=== PATIENT | male | born 1965 | race Caucasian/White ===

== ENCOUNTER 2020-03-16 10:36 | Outpatient (CLI) | payer BC, SELFPAY ==
--- NOTE | 2020-03-16 10:50 | USCV_ITS ---
SARAH VILLARREAL Age: 54 Gender: M : 1965 Exam Date: 03/16/2020 11:09 Ordering Phys: Mariela Matos Technologist: Wayne Vieira Exam Location: [facility] – [place] Indication: RT LEG PAIN AND EDEMA HISTORY: Lower extremity swelling. PROCEDURES: Venous duplex imaging was performed in only the right lower extremity. The following venous structures were evaluated: common femoral vein, profunda vein, proximal portion of the greater saphenous vein, superficial femoral vein, and the popliteal vein. In addition, the posterior tibial and peroneal trunk were evaluated. FINDINGS: Normal 2-D Doppler and augmentation and compressibility throughout the lower extremity venous structures. Additional imaging through the proximal calf veins also reveals no thrombus. Limited evaluation of the greater saphenous vein is patent with no thrombus.. CONCLUSIONS No evidence of right lower extremity DVT. Michael Mead MD (Electronically Signed) Final Date: 16 March 2020 17:16 S
== END 2020-03-16 10:37 | disposition home or self-care (01) ==
LOC: RAD 10:43
PROVIDERS: Visit Provider Registered Nurse
DX: L03.115 Cellulitis of right lower limb (principal); M79.604 Pain in right leg
CPT/HCPCS: 93971

== ENCOUNTER 2020-04-06 09:39 | Outpatient (CLI) | payer BC, SELFPAY ==
[2020-04-06 14:48] LABS: Blood Urea Nitrogen 14 mg/dL (6-20); Glomerular Filtration Rate 118.4 mL/min (90-130)
== END 2020-04-06 09:40 | disposition home or self-care (01) ==
LOC: WOUND 09:41
PROVIDERS: Visit Provider Surgery
DX: I87.2 Venous insufficiency (chronic) (peripheral) (principal); L97.812 Non-pressure chronic ulcer of other part of right lower leg with fat layer exposed
CPT/HCPCS: 11042; 36415; 82565; 84520; G0463

== ENCOUNTER 2020-04-13 13:06 | Outpatient (CLI) | payer BC, SELFPAY | END 2020-04-13 13:07 | disposition home or self-care (01) | LOC: WOUND 13:07 | PROVIDERS: PCP Registered Nurse; Visit Provider Surgery | DX: I87.2 Venous insufficiency (chronic) (peripheral) (principal); L97.812 Non-pressure chronic ulcer of other part of right lower leg with fat layer exposed | CPT/HCPCS: 11042; A6545 ==

== ENCOUNTER 2020-04-16 08:14 | Outpatient (CLI) | payer BC, SELFPAY ==
--- NOTE | 2020-04-16 09:07 | CT_ITS ---
WS: [id number] NONCONTRAST CT RIGHT LEG TECHNIQUE: Noncontrast CT right leg with coronal and sagittal reformatted images. CLINICAL INFORMATION: PAIN, REDNESS, NON HEALING ULCER COMPARISON: None. DLP: 2704.[address] scans at [facility] use at least one of these dose optimization techniques: automat ed exposure control; mA and/or kV adjustment per patient size (includes targeted exams where dose is matched to clinical indication); or iterative reconstruction. FINDINGS: Soft tissue subcutaneous edema throughout the right lower extremity. Findings compatible with celluli tis. No well-defined drainable fluid collections or abscess. Small amount of subcutaneous fluid along the right lower leg at the lower leg and ankle. Skin thickening. Hypertrophic patella. Moderate degenerative changes at the patellofemoral articulation. CT/CT lower leg RT w con [id number] IMPRESSION: 1. No evidence of osteomyelitis. 2. No evidence of drainable abscess or fluid collection.. 3. Cellulitis with diffuse subcutaneous edema right lower leg worse at the ank le. Small amount of fluid in this area although not drainable. 4. 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
[2020-04-16] MEDS: iohexol 300 mg/mL 100 mL Btl IV (09:33)
== END 2020-04-16 08:15 | disposition home or self-care (01) ==
LOC: RADWPI 08:16
PROVIDERS: Family Provider Registered Nurse; PCP Registered Nurse; Visit Provider Surgery
DX: M79.604 Pain in right leg (principal); L53.9 Erythematous condition, unspecified; L97.812 Non-pressure chronic ulcer of other part of right lower leg with fat layer exposed; L03.115 Cellulitis of right lower limb; R60.9 Edema, unspecified; M17.11 Unilateral primary osteoarthritis, right knee
CPT/HCPCS: 73701; Q9967

== ENCOUNTER 2020-04-20 13:58 | Outpatient (CLI) | payer BC, SELFPAY | END 2020-04-20 13:59 | disposition home or self-care (01) | LOC: WOUND 14:05 | PROVIDERS: Family Provider Registered Nurse; PCP Registered Nurse; Visit Provider Surgery | DX: I87.2 Venous insufficiency (chronic) (peripheral) (principal); L97.812 Non-pressure chronic ulcer of other part of right lower leg with fat layer exposed | CPT/HCPCS: 11042 ==

== ENCOUNTER 2020-04-21 05:43 | Outpatient (RCR) | payer BC, SELFPAY ==
--- NOTE | 2020-04-10 09:56 | XR_ITS ---
WS: [id number] CHEST XRAY TECHNIQUE: Portable chest. CLINICAL INFORMATION: picc placement COMPARISON: None. FINDINGS: Right PICC line with tip in the distal SVC on the last image. No pneumothorax. XR/XR chest 1V portable [id number] IMPRESSION: Right PICC line distal SVC
[2020-04-10 11:12] VITALS: BP 129/77; PULSE 83; RESP 18; TEMP 36.1; O2SAT 97; BMI 50.2
[2020-04-10 15:31] LABS: Basophils % 0.4 %; Eosinophils # 0.1 10^3/uL (0.0-0.8); Eosinophils % 1.8 %; Hematocrit 35.7 % (42.0-52.0); Hemoglobin 11.4 g/dL (11.7-16.6); Lymphocytes # 1.5 10^3/uL (0.8-4.8); Lymphocytes % 30.4 %; Mean Corpuscular HGB Conc 31.9 g/dL (30.0-36.0); Mean Corpuscular Hemoglobin 31.4 pg (28.0-34.0); Mean Corpuscular Volume 98.3 fL (80-94); Mean Platelet Volume 10.3 fL (7.4-10.4); Monocytes # 0.5 10^3/uL (0.2-0.9); Monocytes % 8.9 %; Neutrophils # 2.93 10^3/uL (1.8-7.7); Neutrophils % 58.3 %; Nucleated Red Blood Cells % 0 %; Platelet Count 220 10^3/cmm (130-400); Red Blood Count 3.63 10^6/uL (4.1-5.3); Red Cell Distribution Width 12.2 % (12.1-15.1)
[2020-04-10 16:08] LABS: Anion Gap 13.2 (5-19); Blood Urea Nitrogen 11 mg/dL (6-20); Calcium 8.9 mg/dL (8.5-10.5); Carbon Dioxide 27 mmol/L (22-29); Chloride 102 mmol/L (98-107); Glomerular Filtration Rate 141.5 mL/min (90-130); Glucose 150 mg/dL (65-115); Osmolality Calculated 285 mOsm/kg (285-295); Potassium 4.2 mmol/L (3.5-5.1); Sodium 138 mmol/L (136-145)
[2020-04-11 06:39] VITALS: BP 152/100; PULSE 101; RESP 18; TEMP 35.6; O2SAT 96
[2020-04-11 17:25] VITALS: BP 157/83; PULSE 107; RESP 18; TEMP 36.6; O2SAT 93
[2020-04-12 06:20] VITALS: BP 142/93; PULSE 102; RESP 18; TEMP 36.6; O2SAT 94
[2020-04-12 07:08] LABS: Vancomycin Trough 12.1 ug/mL (10-15)
[2020-04-12 16:55] VITALS: BP 133/101; PULSE 111; RESP 18; TEMP 36.1; O2SAT 95
[2020-04-13 06:07] VITALS: BP 151/87; PULSE 98; RESP 18; TEMP 36.5; O2SAT 96
[2020-04-13 17:29] VITALS: BP 172/100; PULSE 111; RESP 20; TEMP 37.1; O2SAT 96
[2020-04-14 06:23] VITALS: BP 149/100; PULSE 100; RESP 18; TEMP 36.6; O2SAT 97
[2020-04-14 17:31] VITALS: BP 149/100; PULSE 100; RESP 18; TEMP 36.5; O2SAT 97
[2020-04-15 06:24] VITALS: BP 159/98; PULSE 107; RESP 18; TEMP 36; O2SAT 95
[2020-04-15 17:13] VITALS: BP 155/93; PULSE 113; RESP 20; TEMP 37.3; O2SAT 97
[2020-04-16 06:15] VITALS: BP 148/86; PULSE 95; RESP 20; TEMP 36.4; O2SAT 95
[2020-04-16 17:22] VITALS: BP 139/86; PULSE 110; RESP 20; TEMP 36.4; O2SAT 95
--- NOTE | 2020-04-16 17:47 | SUR.PREOP ---
Patient here to have infusion of Vancomycin. Unable to obtain blood return after 10 mls of NS flush. Flushes easily medication started without difficulty. Patient stated could taste the Saline with the flush.
[2020-04-17 06:15] VITALS: BP 198/105; PULSE 97; RESP 18; TEMP 36.5; O2SAT 97
[2020-04-17 17:13] VITALS: BP 153/86; PULSE 98; RESP 18; TEMP 36.6; O2SAT 96
[2020-04-17 17:13] LABS: Basophils % 0.6 %; Eosinophils # 0.2 10^3/uL (0.0-0.8); Eosinophils % 2.4 %; Hematocrit 39.2 % (42.0-52.0); Hemoglobin 12.6 g/dL (11.7-16.6); Lymphocytes # 1.7 10^3/uL (0.8-4.8); Lymphocytes % 26.6 %; Mean Corpuscular HGB Conc 32.1 g/dL (30.0-36.0); Mean Corpuscular Hemoglobin 31.3 pg (28.0-34.0); Mean Corpuscular Volume 97.3 fL (80-94); Mean Platelet Volume 9.1 fL (7.4-10.4); Monocytes # 0.7 10^3/uL (0.2-0.9); Monocytes % 11.5 %; Neutrophils # 3.63 10^3/uL (1.8-7.7); Neutrophils % 58.6 %; Nucleated Red Blood Cells % 0 %; Platelet Count 231 10^3/cmm (130-400); Red Blood Count 4.03 10^6/uL (4.1-5.3); Red Cell Distribution Width 12.1 % (12.1-15.1); White Blood Count 6.2 10^3/uL (4.0-10.0)
[2020-04-17 17:22] LABS: Alanine Aminotransferase 15 U/L (0-41); Albumin Level 4.3 g/dL (3.5-5.2); Alkaline Phosphatase 93 IU/L (40-130); Aspartate Amino Transferase 14 U/L (0-40); Blood Urea Nitrogen 9 mg/dL (6-20); Calcium 9.8 mg/dL (8.5-10.5); Carbon Dioxide 30 mmol/L (22-29); Chloride 102 mmol/L (98-107); Glomerular Filtration Rate 118.4 mL/min (90-130); Glucose 155 mg/dL (65-115); Osmolality Calculated 287 mOsm/kg (285-295); Sodium 139 mmol/L (136-145); Total Bilirubin 0.3 mg/dL (0.15-1.2); Total Protein 7.3 g/dL (6.6-8.7); Vancomycin Trough 17.1 ug/mL (10-15)
[2020-04-18 06:00] VITALS: BP 148/93; PULSE 98; RESP 18; TEMP 35.8; O2SAT 96
[2020-04-18 17:55] VITALS: BP 144/95; PULSE 98; RESP 18; TEMP 36.3
[2020-04-19 06:37] VITALS: BP 142/99; PULSE 98; RESP 18; TEMP 36.4; O2SAT 96
[2020-04-19 17:08] VITALS: BP 148/83; PULSE 100; RESP 18; TEMP 36.9; O2SAT 95
[2020-04-19 18:56] LABS: Vancomycin Trough 15.7 ug/mL (10-15)
[2020-04-20 06:04] VITALS: BP 152/98; PULSE 95; RESP 18; TEMP 36.2; O2SAT 95
[2020-04-20 17:45] VITALS: BP 146/86; PULSE 96; RESP 16; TEMP 36.9; O2SAT 96
[2020-04-21 06:24] VITALS: BP 166/101; PULSE 96; RESP 18; TEMP 37.1; O2SAT 96
[2020-04-21 16:58] VITALS: BP 177/94; PULSE 102; RESP 18; TEMP 37; O2SAT 97
[2020-04-22 06:45] VITALS: BP 165/98; PULSE 92; RESP 18; TEMP 36.1; O2SAT 97
[2020-04-22 19:09] VITALS: BP 157/86; PULSE 98; RESP 18; TEMP 36.6; O2SAT 100
[2020-04-23 17:39] VITALS: BP 176/99; PULSE 95; RESP 18; TEMP 36.9; O2SAT 96
[2020-04-24 05:49] VITALS: BP 147/92; PULSE 104; RESP 18; TEMP 36.3; O2SAT 97
[2020-04-24 06:41] LABS: Basophils % 0.6 %; Eosinophils # 0.2 10^3/uL (0.0-0.8); Eosinophils % 2.8 %; Hemoglobin 11.2 g/dL (11.7-16.6); Lymphocytes # 1.4 10^3/uL (0.8-4.8); Lymphocytes % 26.6 %; Mean Corpuscular HGB Conc 32.9 g/dL (30.0-36.0); Mean Corpuscular Hemoglobin 31.8 pg (28.0-34.0); Mean Corpuscular Volume 96.6 fL (80-94); Mean Platelet Volume 9.3 fL (7.4-10.4); Monocytes # 0.6 10^3/uL (0.2-0.9); Monocytes % 10.7 %; Neutrophils # 3.15 10^3/uL (1.8-7.7); Neutrophils % 59.1 %; Nucleated Red Blood Cells % 0 %; Platelet Count 177 10^3/cmm (130-400); Red Blood Count 3.52 10^6/uL (4.1-5.3); Red Cell Distribution Width 12.6 % (12.1-15.1); White Blood Count 5.3 10^3/uL (4.0-10.0)
[2020-04-24 07:53] LABS: Alanine Aminotransferase 13 U/L (0-41); Albumin Level 3.9 g/dL (3.5-5.2); Alkaline Phosphatase 78 IU/L (40-130); Anion Gap 10.9 (5-19); Aspartate Amino Transferase 13 U/L (0-40); Blood Urea Nitrogen 10 mg/dL (6-20); Calcium 8.9 mg/dL (8.5-10.5); Carbon Dioxide 28 mmol/L (22-29); Chloride 102 mmol/L (98-107); Globulin 2.5 g/dL (1.3-4.6); Glomerular Filtration Rate 141.5 mL/min (90-130); Glucose 154 mg/dL (65-115); Osmolality Calculated 283 mOsm/kg (285-295); Potassium 3.9 mmol/L (3.5-5.1); Sodium 137 mmol/L (136-145); Total Bilirubin 0.3 mg/dL (0.15-1.2); Total Protein 6.4 g/dL (6.6-8.7)
[2020-04-24 17:18] VITALS: BP 145/98; PULSE 92; RESP 18; TEMP 36.8; O2SAT 97
--- NOTE | 2020-04-24 19:06 | SUR.PREOP ---
Lab called after I discharged patient and said the Vanc Trough was canceled and that it was drawn in the wrong tube which we have used for years, the green tube. I verbalized they should have called earlier as his infusion was a 2 hour infusion and I could have redrawn.
[2020-04-25 11:36] LABS: Vancomycin Trough 12.6 ug/mL (10-15)
== END 2020-04-27 23:59 | disposition home or self-care (01) ==
LOC: GILAB 05:43
PROVIDERS: PCP Registered Nurse; Visit Provider Surgery
DX: Z45.2 Encounter for adjustment and management of vascular access device (principal)
CPT/HCPCS: 36415; 36569; 36592; 71045; 80048; 80053; 80202; 85025; 96365; 96366; J3370; J7040; J7050

== ENCOUNTER 2020-04-23 10:20 | Outpatient (CLI) | payer BC, SELFPAY ==
--- NOTE | 2020-04-23 10:28 | USCV_ITS ---
SARAH VILLARREAL Age: 54 Gender: M : 1965 Exam Date: 04/23/2020 10:46 Ordering Phys: Gary Jacobsen MD Technologist: Mitzi Bryan [place] [facility] [place]ication: HISTORY: Lower extremity swelling. Lower extremity pain. PROCEDURES: FINDINGS: There is no evidence of RIGHT deep vein thrombosis. No evidence of superficial thrombosis in the RIGHT saphenous system. No evidence of reflux was noted in the RIGHT deep venous system. No venous reflux noted in the RIGHT greater saphenous vein. No venous reflux noted in the RIGHT small saphenous vein. CONCLUSIONS No evidence of DVT in the above-mentioned identifiable veins. No significant venous reflux was noted in the greater saphenous or small saphenous vein segments The superficial veins were found to be of normal caliber. The venous dimensions and the depth from the surface are as mentioned above Dr Cuong Travis MD [facility] (Electronically Signed) Final Date: 25 April 2020 00:35 S
== END 2020-04-23 10:21 | disposition home or self-care (01) ==
LOC: RAD 10:24
PROVIDERS: PCP Registered Nurse; Visit Provider Surgery
DX: M79.604 Pain in right leg (principal); M79.605 Pain in left leg; M79.89 Other specified soft tissue disorders; L53.9 Erythematous condition, unspecified; L97.929 Non-pressure chronic ulcer of unspecified part of left lower leg with unspecified severity; L97.919 Non-pressure chronic ulcer of unspecified part of right lower leg with unspecified severity
CPT/HCPCS: 93971

== ENCOUNTER 2020-04-25 09:45 | Outpatient (CLI) | payer BC, SELFPAY ==
--- NOTE | 2020-04-25 09:53 | USCV_ITS ---
SARAH VILLARREAL Age: 54 Gender: M : 1965 Exam Date: 04/25/2020 09:55 Ordering Phys: Gary Jacobsen MD Technologist: Exam [place] [facility] [place] Indication: pain and redness RIGHT LEFT Brachial mmHg Brachial 137.00 mmHg Pressure (mmHg) Waveform Pressure (mmHg) Waveform 163.00 Above Knee 177.00 Below Knee 200.00 [employer] 194.00 DPA 1.46 Ankle/Brachial Index 182.00 Pre-Exercise Toe Pressure 1.33 Pre-Exercise Toe/Brachial Index FINDINGS Supernormal resting ADILSON and resting TBI on the right side PVR waveforms showing loss of dicrotic notch CONCLUSIONS Some features of mild peripheral artery disease on the right side with possibly no significant obstruction, based on the above findings Dr Cuong Travis MD [facility] (Electronically Signed) Final Date: 26 April 2020 15:57 S
== END 2020-04-25 09:46 | disposition home or self-care (01) ==
LOC: US 09:46
PROVIDERS: PCP Registered Nurse; Visit Provider Surgery
DX: M79.604 Pain in right leg (principal); L53.9 Erythematous condition, unspecified
CPT/HCPCS: 93922

== ENCOUNTER 2020-04-27 14:12 | Outpatient (CLI) | payer BC, SELFPAY | END 2020-04-27 14:13 | disposition home or self-care (01) | LOC: WOUND 14:13 | PROVIDERS: PCP Registered Nurse; Visit Provider Surgery | DX: I87.2 Venous insufficiency (chronic) (peripheral) (principal); L97.812 Non-pressure chronic ulcer of other part of right lower leg with fat layer exposed | CPT/HCPCS: 11042 ==

== ENCOUNTER 2020-04-28 09:32 | Emergency (ER) | payer BC, SELFPAY ==
[2020-04-28 09:34] VITALS: BP 169/83; PULSE 109; RESP 20; TEMP 36.6; O2SAT 97; BMI 50.2
--- NOTE | 2020-04-28 10:04 | W.ED.SKABFB ---
HPI - Skin/Abscess/Foreign Bdy General: Chief complaint: Skin/Abscess/Foreign Body Stated complaint: RASH Time Seen by Provider: 04/28/20 09:36 History of Present Illness: HPI narrative: Pleasant 54-year-old male patient presents to the emergency department with rash that started this morning. He reports PICC line to the right upper extremity removed yesterday, has received 2 weeks of IV vancomycin for chronic right lower extremity wound that is managed by wound care. Treatment with 50 mg of Benadryl this morning which has helped itching. He reports itching is intense, denies burning, fever, chills, nausea vomiting. Reports healing to the right lower extremity without new signs and symptoms of concern. Continues with wound care follow-up next week. Wound care notes were reviewed upon exam, vancomycin discontinued due to healing of the wound. Patient reports peeling of the skin to the bilateral lower extremities that started approximately 1 week ago, he reports improvement. MD complaint: rash Onset (ago): hour(s) (2) Location: chest, back, LUE and RUE Severity: moderate Relieving factors: other (Benadryl) Associated symptoms: Deny chills, fever(s), nausea or vomiting Review of Systems General: Reports: 10 or more systems reviewed and unremarkable except in HPI and below Const: Denies: fever(s), chills or diaphoresis Eyes: Denies: blurry vision or eye redness ENMT: Denies: throat pain, dental pain or disequilibrium Card: Denies: chest pain, palpitations or irregular heart rhythm Resp: Denies: dyspnea, productive cough, non-productive cough or wheezing GI: Denies: abdominal pain, nausea or vomiting : Denies: dysuria Musc: Denies: back pain Skin/Breast: Reports: rash, pruritus and erythema; Denies: skin tenderness or skin swelling Neuro: Denies: headache(s), weakness in extremities or behavioral changes Oumar/Lymph: Denies: easy bruising PFS ED PFSH: Social History (Updated 04/10/20 @ 11:10 by Mirian Shirley) Smoking and tobacco status: never smoked Second hand smoke exposure: No Smoking risk assessment/counseling performed?: No Physical Exam Const: COMMON NORMALS: patient oriented x3, healthy appearing and alert GENERAL APPEARANCE: cooperative, comfortable and well hydrated HENMT: COMMON NORMALS: normocephalic, Normal external nose present and moist oral mucous membranes HEAD & SCALP: normocephalic NOSE: Normal external nose present Eye: COMMON NORMALS: Equal, round and reactive pupils present and EOMs intact bilaterally GENERAL EYE: appearance normal, both eyes and all related structures PUPIL: Yes Equal, round and reactive pupils present Neck/C-Spine: COMMON NORMALS: full ROM and no lymphadenopathy GENERAL: Yes normal visual inspection and Yes trachea midline CERVICAL SPINE: Yes cervical ROM normal Lymph: LYMPHATIC: no lymphadenopathy noted Chest: COMMONS NORMALS: normal inspection of the chest Resp: COMMON NORMALS: normal respiratory effort and clear to auscultation bilaterally AUSCULTATION: clear to auscultation bilaterally Cardio: COMMON NORMALS: regular rhythm, S1 normal heart sound present, S2 normal heart sound present and Peripheral pulses 2+ throughout RHYTHM: regular rhythm HEART SOUNDS: S1 normal heart sound present and S2 normal heart sound present PERIPHERAL PULSES: Peripheral pulses 2+ throughout OTHER: 1 + lymphedema present GI: COMMON NORMALS: Soft to palpation and non-tender INSPECTION: Yes normal to inspection PALPATION: Yes Soft to palpation : COMMON NORMALS: Yes no CVA tenderness BLADDER/KIDNEY EXAM: Yes no CVA tenderness Back/Pelvis: COMMON NORMALS: no CVA tenderness and thoracic and lumbar spine normal to inspection Extremity: COMMON NORMALS: normal to inspection and capillary refill normal Neuro: COMMON NORMALS: patient oriented x3 and no focal motor deficits SENSORIUM/ORIENTATION: Yes alert Psych: COMMON NORMALS: mental status grossly normal, Normal thought process present and cooperative ACTIVITY/MOTOR BEHAVIOR: Yes appropriate eye contact THOUGHT PROCESS: Normal thought process present Skin: COMMON NORMALS: turgor normal GENERAL SKIN EXAM: turgor normal RASHES: rashes noted Maculopapular to the bilateral upper extremities, chest, torso and back. and other (Right upper extremity PICC line site, clean dry and intact without erythema suggestive of cellulitis) HAIR: normal OTHER: Stasis wound with minimal serous drainage posterior lateral right lower leg, appears superficial Course ED course: Discussed with patient findings of serology testing, no increased eosinophilia to suggest DRESS syndrome, signs and symptoms of DRESS discussed with patient, he agrees to continue antihistamine therapy with addition of Xyzal, questions were answered, agrees for follow-up with primary care provider on Thursday or Thursday with continued follow-up with wound care. Vital Signs: Vital signs: Vital Signs Temperature 97.9 F 04/28/20 09:34 Pulse Rate 96 04/28/20 10:57 Respiratory Rate 20 H 04/28/20 09:34 Blood Pressure 169/83 04/28/20 09:34 Pulse Oximetry 97 04/28/20 10:57 MDM - Skin/Abscess/Foreign Bdy Differential Diagnosis: Skin/Abscess Differential Diagnosis: Likely viral exanthem, urticaria and allergic reaction to drug (including DRESS syndrome) Lab Data: Labs: Lab Results 04/28/20 04/28/20 Range/Units 10:09 10:09 WBC 6.2 (4.0-10.0) 10^3/ uL RBC 3.82 L (4.1-5.3) 10^6/u L Hgb 12.2 (11.7-16.6) g/dL Hct 37.1 L (42.0-52.0) % MCV 97.1 H (80-94) fL MCH 31.9 (28.0-34.0) pg MCHC 32.9 (30.0-36.0) g/dL RDW 12.7 (12.1-15.1) % Plt Count 202 (130-400) 10^3/c mm MPV 9.1 (7.4-10.4) fL Neut % (Auto) 64.7 % Lymph % (Auto) 22.2 % [place] % (Auto) 9.0 % Eos % (Auto) 3.4 % Baso % (Auto) 0.5 % Neut # (Auto) 4.03 (1.8-7.7) 10^3/u L Lymph # (Auto) 1.4 (0.8-4.8) 10^3/u L [place] # (Auto) 0.6 (0.2-0.9) 10^3/u L Eos # (Auto) 0.2 (0.0-0.8) 10^3/u L Baso # (Auto) 0.0 (0.0-0.1) 10^3/u L Nucleated RBC % (a uto) 0 % Nucleated RBCs # 0.0 /100WBC Sodium 137 (136-145) mmol/L Potassium 4.4 (3.5-5.1) mmol/L Chloride 102 (98-107) mmol/L Carbon Dioxide 28 (22-29) mmol/L Anion Gap 11.4 (5-19) BUN 15 (6-20) mg/dL Creatinine 0.7 (0.7-1.2) mg/dL GFR Calculation 118.4 (90-130) mL/min Glucose 223 H (65-115) mg/dL Calculated Osmolal ity 287 (285-295) mOsm/k g Calcium 9.5 (8.5-10.5) mg/dL Total Bilirubin 0.2 (0.15-1.2) mg/dL AST 12 (0-40) U/L ALT 15 (0-41) U/L Alkaline Phosphata se 85 (40-130) IU/L Total Protein 7.0 (6.6-8.7) g/dL Albumin 4.3 (3.5-5.2) g/dL Globulin 2.7 (1.3-4.6) g/dL Discharge Plan Discharge Patient Disposition: Home Clinical Impression: Urticaria Allergic reaction to drug Qualifiers: Encounter type: initial encounter Qualified Code(s): T78.40XA - Allergy, unspecified, initial encounter Condition: Stable Prescriptions: New Xyzal 5 mg tablet 5 mg PO DAILY Qty: 10 RF: 0 No Action pioglitazone [Actos] 45 mg Tablet 45 mg PO DAILY RF: 0 prochlorperazine maleate [Compazine] 10 mg Tablet 10 mg PO BID PRN (Reason: Nausea) RF: 0 alprazolam [Xanax] 0.5 mg Tablet 0.5 mg PO TID PRN (Reason: Anxiety) RF: 0 losartan 25 mg Tablet 25 mg PO DAILY RF: 0 Tylenol Extra Strength 500 mg Tablet 1,500 mg PO BEDTIME RF: 0 Benadryl 25 mg Capsule 50 mg PO PRN RF: 0 metformin 500 mg tablet extended release 24 hr 500 mg PO BID RF: 0 Discharge Orders: Discharge Order (Routine); Ordered 04/28/20 Ordered By: Daisy Buchanan Referrals: Mariela Matos [Primary Care Provider] - Discharge Diet: Usual diet Discharge Activity: Resume usual activity Patient Instructions: Allergic Reaction, Acute Rash (ED) Activity Restrictions/Additional Instructions: Continue follow-up with wound care as scheduled Continue to monitor the wound for worsening signs and symptoms of infection such as increased redness, change of drainage Continue Benadryl 50 mg every 6 hours as needed for breakthrough itching Continue Xyzal daily as directed You will need to follow-up with your primary care provider this week If you develop shortness of breath, oral swelling, throat swelling, difficulty breathing or swallowing, you will need to return to the emergency department immediately Keep legs elevated as wound care has suggested Stand Alone Forms: Work/School Release Discharge Date/Time: 04/28/20 11:00 Coding Level of Care Code ED Medicare Biller for Chg Fwd Exam Comprehensive
[2020-04-28 10:15] LABS: Basophils % 0.5 %; Eosinophils # 0.2 10^3/uL (0.0-0.8); Eosinophils % 3.4 %; Hematocrit 37.1 % (42.0-52.0); Hemoglobin 12.2 g/dL (11.7-16.6); Lymphocytes # 1.4 10^3/uL (0.8-4.8); Lymphocytes % 22.2 %; Mean Corpuscular HGB Conc 32.9 g/dL (30.0-36.0); Mean Corpuscular Hemoglobin 31.9 pg (28.0-34.0); Mean Corpuscular Volume 97.1 fL (80-94); Mean Platelet Volume 9.1 fL (7.4-10.4); Monocytes # 0.6 10^3/uL (0.2-0.9); Neutrophils # 4.03 10^3/uL (1.8-7.7); Neutrophils % 64.7 %; Nucleated Red Blood Cells % 0 %; Platelet Count 202 10^3/cmm (130-400); Red Blood Count 3.82 10^6/uL (4.1-5.3); Red Cell Distribution Width 12.7 % (12.1-15.1); White Blood Count 6.2 10^3/uL (4.0-10.0)
[2020-04-28 10:45] LABS: Alanine Aminotransferase 15 U/L (0-41); Albumin Level 4.3 g/dL (3.5-5.2); Alkaline Phosphatase 85 IU/L (40-130); Anion Gap 11.4 (5-19); Aspartate Amino Transferase 12 U/L (0-40); Blood Urea Nitrogen 15 mg/dL (6-20); Calcium 9.5 mg/dL (8.5-10.5); Carbon Dioxide 28 mmol/L (22-29); Chloride 102 mmol/L (98-107); Globulin 2.7 g/dL (1.3-4.6); Glomerular Filtration Rate 118.4 mL/min (90-130); Glucose 223 mg/dL (65-115); Osmolality Calculated 287 mOsm/kg (285-295); Potassium 4.4 mmol/L (3.5-5.1); Sodium 137 mmol/L (136-145); Total Bilirubin 0.2 mg/dL (0.15-1.2)
[2020-04-28 10:57] VITALS: PULSE 96; O2SAT 97
== END 2020-04-28 11:00 | disposition home or self-care (01) ==
PROVIDERS: Emergency Provider Nurse Practitioner Family; PCP Registered Nurse
DX: T78.40XA Allergy, unspecified, initial encounter (principal); L50.9 Urticaria, unspecified
CPT/HCPCS: 12345; 80053; 85025; 99281; 99282

== ENCOUNTER 2020-05-04 13:08 | Outpatient (CLI) | payer BC, SELFPAY | END 2020-05-04 13:09 | disposition home or self-care (01) | LOC: WOUND 13:08 | PROVIDERS: PCP Registered Nurse; Visit Provider Thoracic Surgery (Cardiothoracic Vascular Surgery) | DX: I87.2 Venous insufficiency (chronic) (peripheral) (principal); L97.812 Non-pressure chronic ulcer of other part of right lower leg with fat layer exposed; L03.115 Cellulitis of right lower limb | CPT/HCPCS: 11042 ==

== ENCOUNTER 2020-05-07 09:54 | Outpatient (CLI) | payer BC, SELFPAY | END 2020-05-07 09:55 | disposition home or self-care (01) | LOC: WOUND 09:59 | PROVIDERS: PCP Registered Nurse; Visit Provider Emergency Medicine | DX: I87.2 Venous insufficiency (chronic) (peripheral) (principal); L97.812 Non-pressure chronic ulcer of other part of right lower leg with fat layer exposed; L03.115 Cellulitis of right lower limb; I70.232 Atherosclerosis of native arteries of right leg with ulceration of calf | CPT/HCPCS: 29581 ==

== ENCOUNTER 2020-05-11 13:47 | Outpatient (CLI) | payer BC, SELFPAY | END 2020-05-11 13:48 | disposition home or self-care (01) | LOC: WOUND 13:48 | PROVIDERS: PCP Registered Nurse; Visit Provider Surgery | DX: I87.2 Venous insufficiency (chronic) (peripheral) (principal); L97.812 Non-pressure chronic ulcer of other part of right lower leg with fat layer exposed | CPT/HCPCS: 11042 ==

== ENCOUNTER 2020-05-18 13:54 | Outpatient (CLI) | payer BC, SELFPAY | END 2020-05-18 13:55 | disposition home or self-care (01) | LOC: WOUND 13:54 | PROVIDERS: PCP Registered Nurse; Visit Provider Surgery | DX: I87.2 Venous insufficiency (chronic) (peripheral) (principal); L97.812 Non-pressure chronic ulcer of other part of right lower leg with fat layer exposed | CPT/HCPCS: 11043 ==

== ENCOUNTER 2020-05-25 15:26 | Outpatient (CLI) | payer BC, SELFPAY | END 2020-05-25 15:27 | disposition home or self-care (01) | LOC: WOUND 15:26 | PROVIDERS: PCP Registered Nurse; Visit Provider Surgery | DX: I87.2 Venous insufficiency (chronic) (peripheral) (principal); L97.812 Non-pressure chronic ulcer of other part of right lower leg with fat layer exposed | CPT/HCPCS: 11043 ==

== ENCOUNTER 2020-06-01 15:25 | Outpatient (CLI) | payer BC, SELFPAY | END 2020-06-01 15:26 | disposition home or self-care (01) | LOC: WOUND 15:26 | PROVIDERS: PCP Registered Nurse; Visit Provider Surgery | DX: I87.2 Venous insufficiency (chronic) (peripheral) (principal); L97.512 Non-pressure chronic ulcer of other part of right foot with fat layer exposed | CPT/HCPCS: 11043; 97605 ==

== ENCOUNTER 2020-06-05 14:50 | Outpatient (CLI) | payer BC, SELFPAY | END 2020-06-05 14:51 | disposition home or self-care (01) | LOC: WOUND 14:50 | PROVIDERS: PCP Registered Nurse; Visit Provider Thoracic Surgery (Cardiothoracic Vascular Surgery) | DX: I87.2 Venous insufficiency (chronic) (peripheral) (principal); L97.812 Non-pressure chronic ulcer of other part of right lower leg with fat layer exposed | CPT/HCPCS: 11042 ==

== ENCOUNTER 2020-06-08 10:56 | Outpatient (CLI) | payer BC, SELFPAY | END 2020-06-08 10:57 | disposition home or self-care (01) | LOC: WOUND 10:56 | PROVIDERS: PCP Registered Nurse; Visit Provider Surgery | DX: I87.2 Venous insufficiency (chronic) (peripheral) (principal); L97.812 Non-pressure chronic ulcer of other part of right lower leg with fat layer exposed | CPT/HCPCS: 11042 ==

== ENCOUNTER 2020-06-15 10:49 | Outpatient (CLI) | payer BC, SELFPAY | END 2020-06-15 10:50 | disposition home or self-care (01) | LOC: WOUND 10:50 | PROVIDERS: PCP Registered Nurse; Visit Provider Nurse Practitioner Family | DX: I87.2 Venous insufficiency (chronic) (peripheral) (principal); L97.812 Non-pressure chronic ulcer of other part of right lower leg with fat layer exposed | CPT/HCPCS: 11042 ==

== ENCOUNTER 2020-06-18 15:13 | Outpatient (CLI) | payer BC, SELFPAY | END 2020-06-18 15:14 | disposition home or self-care (01) | LOC: WOUND 15:13 | PROVIDERS: PCP Registered Nurse; Visit Provider Nurse Practitioner Family | DX: I87.2 Venous insufficiency (chronic) (peripheral) (principal); L97.812 Non-pressure chronic ulcer of other part of right lower leg with fat layer exposed | CPT/HCPCS: 29581 ==

== ENCOUNTER 2020-06-22 08:36 | Outpatient (CLI) | payer BC, SELFPAY | END 2020-06-22 08:37 | disposition home or self-care (01) | LOC: WOUND 08:38 | PROVIDERS: PCP Registered Nurse; Visit Provider Surgery | DX: I87.2 Venous insufficiency (chronic) (peripheral) (principal); L97.812 Non-pressure chronic ulcer of other part of right lower leg with fat layer exposed | CPT/HCPCS: 11042 ==

== ENCOUNTER 2020-06-25 14:57 | Outpatient (CLI) | payer BC, SELFPAY | END 2020-06-25 14:58 | disposition home or self-care (01) | LOC: WOUND 14:58 | PROVIDERS: PCP Registered Nurse; Visit Provider Nurse Practitioner Family | DX: E11.622 Type 2 diabetes mellitus with other skin ulcer (principal); L97.812 Non-pressure chronic ulcer of other part of right lower leg with fat layer exposed; L03.115 Cellulitis of right lower limb | CPT/HCPCS: 29581 ==

== ENCOUNTER 2020-06-28 13:45 | Outpatient (CLI) | payer BC, SELFPAY ==
[2020-06-28 14:34] LABS: Alanine Aminotransferase 18 U/L (0-41); Albumin Level 4.3 g/dL (3.5-5.2); Alkaline Phosphatase 103 IU/L (40-130); Anion Gap 11.2 (5-19); Aspartate Amino Transferase 13 U/L (0-40); Blood Urea Nitrogen 13 mg/dL (6-20); Carbon Dioxide 30 mmol/L (22-29); Chloride 100 mmol/L (98-107); Globulin 2.8 g/dL (1.3-4.6); Glomerular Filtration Rate 101.5 mL/min (90-130); Glucose 157 mg/dL (65-115); Osmolality Calculated 287 mOsm/kg (285-295); Potassium 4.2 mmol/L (3.5-5.1); Sodium 137 mmol/L (136-145); Total Bilirubin 0.2 mg/dL (0.15-1.2); Total Protein 7.1 g/dL (6.6-8.7)
[2020-06-28 14:47] LABS: Prealbumin 20.6 mg/dL (20-40)
== END 2020-06-28 13:46 | disposition home or self-care (01) ==
LOC: LAB 13:48
PROVIDERS: PCP Registered Nurse; Visit Provider Surgery
DX: L98.499 Non-pressure chronic ulcer of skin of other sites with unspecified severity (principal)
CPT/HCPCS: 36415; 80053; 84134

== ENCOUNTER 2020-06-29 08:33 | Outpatient (CLI) | payer BC, SELFPAY | END 2020-06-29 08:34 | disposition home or self-care (01) | LOC: WOUND 08:34 | PROVIDERS: PCP Registered Nurse; Visit Provider Surgery | DX: I87.2 Venous insufficiency (chronic) (peripheral) (principal); L97.812 Non-pressure chronic ulcer of other part of right lower leg with fat layer exposed | CPT/HCPCS: 11043 ==

== ENCOUNTER 2020-07-02 07:47 | Outpatient (CLI) | payer BC, SELFPAY | END 2020-07-02 07:48 | disposition home or self-care (01) | LOC: WOUND 07:48 | PROVIDERS: PCP Registered Nurse; Visit Provider Nurse Practitioner Family | DX: L97.812 Non-pressure chronic ulcer of other part of right lower leg with fat layer exposed; L03.115 Cellulitis of right lower limb; I87.2 Venous insufficiency (chronic) (peripheral) | CPT/HCPCS: 29581 ==

== ENCOUNTER 2020-07-06 08:31 | Outpatient (CLI) | payer BC, SELFPAY | END 2020-07-06 08:32 | disposition home or self-care (01) | LOC: WOUND 08:31 | PROVIDERS: PCP Registered Nurse; Visit Provider Surgery | DX: I87.2 Venous insufficiency (chronic) (peripheral) (principal); L97.812 Non-pressure chronic ulcer of other part of right lower leg with fat layer exposed | CPT/HCPCS: 11042; 11719 ==

== ENCOUNTER 2020-07-10 07:59 | Outpatient (CLI) | payer BC, SELFPAY | END 2020-07-10 08:00 | disposition home or self-care (01) | LOC: WOUND 07:59 | PROVIDERS: PCP Registered Nurse; Visit Provider Thoracic Surgery (Cardiothoracic Vascular Surgery) | DX: I87.2 Venous insufficiency (chronic) (peripheral) (principal); L97.812 Non-pressure chronic ulcer of other part of right lower leg with fat layer exposed | CPT/HCPCS: 29581 ==

== ENCOUNTER 2020-07-13 08:54 | Outpatient (CLI) | payer BC, SELFPAY | END 2020-07-13 08:55 | disposition home or self-care (01) | LOC: WOUND 08:54 | PROVIDERS: PCP Registered Nurse; Visit Provider Surgery | DX: I87.2 Venous insufficiency (chronic) (peripheral) (principal); L97.812 Non-pressure chronic ulcer of other part of right lower leg with fat layer exposed | CPT/HCPCS: 11042 ==

== ENCOUNTER 2020-07-16 13:27 | Outpatient (CLI) | payer BC, SELFPAY ==
[2020-07-16 16:22] LABS: Estmated Average Glucose 148; Hemoglobin A1C 6.8 % (4.0-6.0)
== END 2020-07-16 13:28 | disposition home or self-care (01) ==
LOC: WOUND 13:27
PROVIDERS: PCP Registered Nurse; Visit Provider Thoracic Surgery (Cardiothoracic Vascular Surgery)
DX: L97.812 Non-pressure chronic ulcer of other part of right lower leg with fat layer exposed (principal); L03.115 Cellulitis of right lower limb
CPT/HCPCS: 29581; 36415; 83036

== ENCOUNTER 2020-07-20 09:05 | Outpatient (CLI) | payer BC, SELFPAY | END 2020-07-20 09:06 | disposition home or self-care (01) | LOC: WOUND 09:05 | PROVIDERS: PCP Registered Nurse; Visit Provider Surgery | DX: I87.2 Venous insufficiency (chronic) (peripheral) (principal); L97.812 Non-pressure chronic ulcer of other part of right lower leg with fat layer exposed | CPT/HCPCS: 11042 ==

== ENCOUNTER 2020-07-24 08:05 | Outpatient (CLI) | payer BC, SELFPAY | END 2020-07-24 08:06 | disposition home or self-care (01) | LOC: WOUND 08:05 | PROVIDERS: PCP Registered Nurse; Visit Provider Thoracic Surgery (Cardiothoracic Vascular Surgery) | DX: E11.622 Type 2 diabetes mellitus with other skin ulcer (principal); L97.812 Non-pressure chronic ulcer of other part of right lower leg with fat layer exposed; L03.115 Cellulitis of right lower limb | CPT/HCPCS: 29581 ==

== ENCOUNTER 2020-07-27 09:18 | Outpatient (CLI) | payer BC, SELFPAY | END 2020-07-27 09:19 | disposition home or self-care (01) | LOC: WOUND 09:18 | PROVIDERS: PCP Registered Nurse; Visit Provider Surgery | DX: I87.2 Venous insufficiency (chronic) (peripheral) (principal); L97.812 Non-pressure chronic ulcer of other part of right lower leg with fat layer exposed | CPT/HCPCS: 15271; Q4186 ==

== ENCOUNTER 2020-07-31 07:55 | Outpatient (CLI) | payer BC, SELFPAY | END 2020-07-31 07:56 | disposition home or self-care (01) | LOC: WOUND 07:57 | PROVIDERS: PCP Registered Nurse; Visit Provider Thoracic Surgery (Cardiothoracic Vascular Surgery) | DX: E11.622 Type 2 diabetes mellitus with other skin ulcer (principal); L97.812 Non-pressure chronic ulcer of other part of right lower leg with fat layer exposed; L03.115 Cellulitis of right lower limb | CPT/HCPCS: 29581 ==

== ENCOUNTER 2020-08-03 07:56 | Outpatient (CLI) | payer BC, SELFPAY | END 2020-08-03 07:57 | disposition home or self-care (01) | LOC: WOUND 07:58 | PROVIDERS: PCP Registered Nurse; Visit Provider Nurse Practitioner Family | DX: I87.2 Venous insufficiency (chronic) (peripheral) (principal); L97.812 Non-pressure chronic ulcer of other part of right lower leg with fat layer exposed | CPT/HCPCS: 11042 ==

== ENCOUNTER 2020-08-07 15:00 | Outpatient (CLI) | payer BC, SELFPAY | END 2020-08-07 15:01 | disposition home or self-care (01) | LOC: WOUND 15:00 | PROVIDERS: PCP Registered Nurse; Visit Provider Thoracic Surgery (Cardiothoracic Vascular Surgery) | DX: I87.2 Venous insufficiency (chronic) (peripheral) (principal); L97.812 Non-pressure chronic ulcer of other part of right lower leg with fat layer exposed | CPT/HCPCS: 29581 ==

== ENCOUNTER 2020-08-10 08:41 | Outpatient (CLI) | payer BC, SELFPAY | END 2020-08-10 08:42 | disposition home or self-care (01) | LOC: WOUND 08:41 | PROVIDERS: PCP Registered Nurse; Visit Provider Surgery | DX: I87.2 Venous insufficiency (chronic) (peripheral) (principal); L97.812 Non-pressure chronic ulcer of other part of right lower leg with fat layer exposed | CPT/HCPCS: 11042 ==

== ENCOUNTER 2020-08-14 10:13 | Outpatient (CLI) | payer BC, SELFPAY | END 2020-08-14 10:14 | disposition home or self-care (01) | LOC: WOUND 10:14 | PROVIDERS: PCP Registered Nurse; Visit Provider Nurse Practitioner Family | DX: E11.622 Type 2 diabetes mellitus with other skin ulcer (principal); L97.812 Non-pressure chronic ulcer of other part of right lower leg with fat layer exposed; L03.115 Cellulitis of right lower limb | CPT/HCPCS: 29581 ==

== ENCOUNTER 2020-08-17 08:40 | Outpatient (CLI) | payer BC, SELFPAY | END 2020-08-17 08:41 | disposition home or self-care (01) | LOC: WOUND 08:40 | PROVIDERS: PCP Registered Nurse; Visit Provider Surgery | DX: I87.2 Venous insufficiency (chronic) (peripheral) (principal); L97.812 Non-pressure chronic ulcer of other part of right lower leg with fat layer exposed; I96 Gangrene, not elsewhere classified; Z87.891 Personal history of nicotine dependence | CPT/HCPCS: 11042 ==

== ENCOUNTER 2020-08-22 10:52 | Outpatient (CLI) | payer BC, SELFPAY | END 2020-08-22 10:53 | disposition home or self-care (01) | LOC: WOUND 10:53 | PROVIDERS: PCP Registered Nurse; Visit Provider Nurse Practitioner Family | DX: E11.622 Type 2 diabetes mellitus with other skin ulcer (principal); L97.812 Non-pressure chronic ulcer of other part of right lower leg with fat layer exposed; L03.115 Cellulitis of right lower limb | CPT/HCPCS: 29581 ==

== ENCOUNTER 2020-08-28 08:06 | Outpatient (CLI) | payer BC, SELFPAY | END 2020-08-28 08:07 | disposition home or self-care (01) | LOC: WOUND 08:07 | PROVIDERS: PCP Registered Nurse; Visit Provider Thoracic Surgery (Cardiothoracic Vascular Surgery) | DX: E11.622 Type 2 diabetes mellitus with other skin ulcer (principal); L97.812 Non-pressure chronic ulcer of other part of right lower leg with fat layer exposed; L03.115 Cellulitis of right lower limb | CPT/HCPCS: 29581 ==

== ENCOUNTER 2020-08-31 08:41 | Outpatient (CLI) | payer BC, SELFPAY | END 2020-08-31 08:42 | disposition home or self-care (01) | LOC: WOUND 08:42 | PROVIDERS: PCP Registered Nurse; Visit Provider Surgery | DX: I87.2 Venous insufficiency (chronic) (peripheral) (principal); L97.812 Non-pressure chronic ulcer of other part of right lower leg with fat layer exposed | CPT/HCPCS: 11042 ==

== ENCOUNTER 2020-09-04 08:03 | Outpatient (CLI) | payer BC, SELFPAY | END 2020-09-04 08:04 | disposition home or self-care (01) | LOC: WOUND 08:04 | PROVIDERS: PCP Registered Nurse; Visit Provider Thoracic Surgery (Cardiothoracic Vascular Surgery) | DX: L97.819 Non-pressure chronic ulcer of other part of right lower leg with unspecified severity (principal) | CPT/HCPCS: 29581 ==

== ENCOUNTER 2020-09-07 08:43 | Outpatient (CLI) | payer BC, SELFPAY | END 2020-09-07 08:44 | disposition home or self-care (01) | LOC: WOUND 08:43 | PROVIDERS: PCP Registered Nurse; Visit Provider Surgery | DX: I87.2 Venous insufficiency (chronic) (peripheral) (principal); L97.812 Non-pressure chronic ulcer of other part of right lower leg with fat layer exposed | CPT/HCPCS: 11042 ==

== ENCOUNTER 2020-09-11 13:41 | Outpatient (CLI) | payer BC, SELFPAY | END 2020-09-11 13:42 | disposition home or self-care (01) | LOC: WOUND 13:41 | PROVIDERS: PCP Registered Nurse; Visit Provider Thoracic Surgery (Cardiothoracic Vascular Surgery) | DX: E11.622 Type 2 diabetes mellitus with other skin ulcer (principal); L97.812 Non-pressure chronic ulcer of other part of right lower leg with fat layer exposed; L03.115 Cellulitis of right lower limb | CPT/HCPCS: 29581 ==

== ENCOUNTER 2020-09-14 09:11 | Outpatient (CLI) | payer BC, SELFPAY | END 2020-09-14 09:12 | disposition home or self-care (01) | LOC: WOUND 09:11 | PROVIDERS: PCP Registered Nurse; Visit Provider Surgery | DX: I87.2 Venous insufficiency (chronic) (peripheral) (principal); L97.812 Non-pressure chronic ulcer of other part of right lower leg with fat layer exposed | CPT/HCPCS: 11042 ==

== ENCOUNTER 2020-09-19 14:45 | Outpatient (CLI) | payer BC, SELFPAY | END 2020-09-19 14:46 | disposition home or self-care (01) | LOC: WOUND 14:45 | PROVIDERS: PCP Registered Nurse; Visit Provider Nurse Practitioner Family | DX: I87.2 Venous insufficiency (chronic) (peripheral) (principal); L97.812 Non-pressure chronic ulcer of other part of right lower leg with fat layer exposed | CPT/HCPCS: 11042 ==

== ENCOUNTER 2020-09-26 15:13 | Outpatient (CLI) | payer BC, SELFPAY | END 2020-09-26 15:14 | disposition home or self-care (01) | LOC: WOUND 15:13 | PROVIDERS: PCP Registered Nurse; Visit Provider Nurse Practitioner Family | DX: I87.2 Venous insufficiency (chronic) (peripheral) (principal); L97.812 Non-pressure chronic ulcer of other part of right lower leg with fat layer exposed | CPT/HCPCS: 11042 ==

== ENCOUNTER 2020-10-05 09:31 | Outpatient (CLI) | payer BC, SELFPAY | END 2020-10-05 09:32 | disposition home or self-care (01) | LOC: WOUND 09:31 | PROVIDERS: PCP Registered Nurse; Visit Provider Surgery | DX: I87.2 Venous insufficiency (chronic) (peripheral) (principal); L97.812 Non-pressure chronic ulcer of other part of right lower leg with fat layer exposed | CPT/HCPCS: 11042 ==

== ENCOUNTER 2020-10-09 09:43 | Outpatient (CLI) | payer BC, SELFPAY | END 2020-10-09 09:44 | disposition home or self-care (01) | LOC: WOUND 09:44 | PROVIDERS: PCP Registered Nurse; Visit Provider Thoracic Surgery (Cardiothoracic Vascular Surgery) | DX: E11.622 Type 2 diabetes mellitus with other skin ulcer (principal); I87.2 Venous insufficiency (chronic) (peripheral); L97.812 Non-pressure chronic ulcer of other part of right lower leg with fat layer exposed; L03.115 Cellulitis of right lower limb; I70.232 Atherosclerosis of native arteries of right leg with ulceration of calf | CPT/HCPCS: 29581 ==

== ENCOUNTER 2020-10-12 09:29 | Outpatient (CLI) | payer BC, SELFPAY | END 2020-10-12 09:30 | disposition home or self-care (01) | LOC: WOUND 09:29 | PROVIDERS: PCP Registered Nurse; Visit Provider Surgery | DX: E11.622 Type 2 diabetes mellitus with other skin ulcer (principal); L97.812 Non-pressure chronic ulcer of other part of right lower leg with fat layer exposed; I87.2 Venous insufficiency (chronic) (peripheral); L03.115 Cellulitis of right lower limb; I70.232 Atherosclerosis of native arteries of right leg with ulceration of calf | CPT/HCPCS: 11042 ==

== ENCOUNTER 2020-10-16 08:03 | Outpatient (CLI) | payer BC, SELFPAY | END 2020-10-16 08:04 | disposition home or self-care (01) | LOC: WOUND 08:03 | PROVIDERS: PCP Registered Nurse; Visit Provider Thoracic Surgery (Cardiothoracic Vascular Surgery) | DX: E11.622 Type 2 diabetes mellitus with other skin ulcer (principal); I87.2 Venous insufficiency (chronic) (peripheral); I70.232 Atherosclerosis of native arteries of right leg with ulceration of calf; L97.812 Non-pressure chronic ulcer of other part of right lower leg with fat layer exposed; L03.115 Cellulitis of right lower limb | CPT/HCPCS: 29581 ==

== ENCOUNTER 2020-10-19 09:07 | Outpatient (CLI) | payer BC, SELFPAY | END 2020-10-19 09:08 | disposition home or self-care (01) | LOC: WOUND 09:08 | PROVIDERS: PCP Registered Nurse; Visit Provider Surgery | DX: E11.622 Type 2 diabetes mellitus with other skin ulcer (principal); L97.812 Non-pressure chronic ulcer of other part of right lower leg with fat layer exposed; I87.2 Venous insufficiency (chronic) (peripheral); I70.232 Atherosclerosis of native arteries of right leg with ulceration of calf; L03.115 Cellulitis of right lower limb; I96 Gangrene, not elsewhere classified | CPT/HCPCS: 11042 ==

== ENCOUNTER 2020-10-23 08:16 | Outpatient (CLI) | payer BC, SELFPAY | END 2020-10-23 08:17 | disposition home or self-care (01) | LOC: WOUND 08:16 | PROVIDERS: PCP Registered Nurse; Visit Provider Thoracic Surgery (Cardiothoracic Vascular Surgery) | DX: E11.622 Type 2 diabetes mellitus with other skin ulcer (principal); I87.2 Venous insufficiency (chronic) (peripheral); L97.812 Non-pressure chronic ulcer of other part of right lower leg with fat layer exposed; L03.115 Cellulitis of right lower limb; I70.232 Atherosclerosis of native arteries of right leg with ulceration of calf | CPT/HCPCS: 29581 ==

== ENCOUNTER 2020-10-26 08:19 | Outpatient (CLI) | payer BC, SELFPAY | END 2020-10-26 08:20 | disposition home or self-care (01) | LOC: WOUND 08:19 | PROVIDERS: PCP Registered Nurse; Visit Provider Surgery | DX: I87.2 Venous insufficiency (chronic) (peripheral) (principal); L97.812 Non-pressure chronic ulcer of other part of right lower leg with fat layer exposed | CPT/HCPCS: 11042 ==

== ENCOUNTER 2020-10-30 08:01 | Outpatient (CLI) | payer BC, SELFPAY | END 2020-10-30 08:02 | disposition home or self-care (01) | LOC: WOUND 08:05 | PROVIDERS: PCP Registered Nurse; Visit Provider Thoracic Surgery (Cardiothoracic Vascular Surgery) | DX: E11.622 Type 2 diabetes mellitus with other skin ulcer (principal); I87.2 Venous insufficiency (chronic) (peripheral); I70.232 Atherosclerosis of native arteries of right leg with ulceration of calf; L97.812 Non-pressure chronic ulcer of other part of right lower leg with fat layer exposed; L03.115 Cellulitis of right lower limb | CPT/HCPCS: 29581 ==

== ENCOUNTER 2020-11-02 08:25 | Outpatient (CLI) | payer BC, SELFPAY | END 2020-11-02 08:26 | disposition home or self-care (01) | LOC: WOUND 08:25 | PROVIDERS: PCP Registered Nurse; Visit Provider Surgery | DX: I87.2 Venous insufficiency (chronic) (peripheral) (principal); L97.812 Non-pressure chronic ulcer of other part of right lower leg with fat layer exposed | CPT/HCPCS: 11042 ==

== ENCOUNTER 2020-11-06 08:09 | Outpatient (CLI) | payer BC, SELFPAY | END 2020-11-06 08:10 | disposition home or self-care (01) | LOC: WOUND 08:09 | PROVIDERS: PCP Registered Nurse; Visit Provider Thoracic Surgery (Cardiothoracic Vascular Surgery) | DX: E11.622 Type 2 diabetes mellitus with other skin ulcer (principal); I87.2 Venous insufficiency (chronic) (peripheral); I70.232 Atherosclerosis of native arteries of right leg with ulceration of calf; L97.812 Non-pressure chronic ulcer of other part of right lower leg with fat layer exposed; L03.115 Cellulitis of right lower limb | CPT/HCPCS: 29581 ==

== ENCOUNTER 2020-11-09 07:55 | Outpatient (CLI) | payer BC, SELFPAY | END 2020-11-09 07:56 | disposition home or self-care (01) | LOC: WOUND 07:56 | PROVIDERS: PCP Registered Nurse; Visit Provider Surgery | DX: I96 Gangrene, not elsewhere classified (principal); L97.812 Non-pressure chronic ulcer of other part of right lower leg with fat layer exposed | CPT/HCPCS: 11042 ==

== ENCOUNTER 2020-11-13 08:41 | Outpatient (CLI) | payer SELFPAY | END 2020-11-13 08:42 | disposition home or self-care (01) | LOC: WOUND 08:42 | PROVIDERS: PCP Registered Nurse; Visit Provider Thoracic Surgery (Cardiothoracic Vascular Surgery) | DX: I87.2 Venous insufficiency (chronic) (peripheral) (principal); L97.812 Non-pressure chronic ulcer of other part of right lower leg with fat layer exposed | CPT/HCPCS: 11042 ==

== ENCOUNTER 2020-11-16 08:38 | Outpatient (CLI) | payer BC, SELFPAY | END 2020-11-16 08:39 | disposition home or self-care (01) | LOC: WOUND 08:38 | PROVIDERS: PCP Registered Nurse; Visit Provider Surgery | DX: I87.2 Venous insufficiency (chronic) (peripheral) (principal); L97.812 Non-pressure chronic ulcer of other part of right lower leg with fat layer exposed | CPT/HCPCS: 11042; 97597 ==

== ENCOUNTER 2020-11-20 07:57 | Outpatient (CLI) | payer BC, SELFPAY | END 2020-11-20 07:58 | disposition home or self-care (01) | LOC: WOUND 07:57 | PROVIDERS: PCP Registered Nurse; Visit Provider Thoracic Surgery (Cardiothoracic Vascular Surgery) | DX: E11.622 Type 2 diabetes mellitus with other skin ulcer (principal); I87.2 Venous insufficiency (chronic) (peripheral); I70.232 Atherosclerosis of native arteries of right leg with ulceration of calf; L97.812 Non-pressure chronic ulcer of other part of right lower leg with fat layer exposed; L03.115 Cellulitis of right lower limb | CPT/HCPCS: 29581 ==

== ENCOUNTER 2020-11-23 08:41 | Outpatient (CLI) | payer BC, SELFPAY | END 2020-11-23 08:42 | disposition home or self-care (01) | LOC: WOUND 08:41 | PROVIDERS: PCP Registered Nurse; Visit Provider Surgery | DX: I87.2 Venous insufficiency (chronic) (peripheral) (principal); L97.812 Non-pressure chronic ulcer of other part of right lower leg with fat layer exposed | CPT/HCPCS: 11042; 97597 ==

== ENCOUNTER 2020-11-27 08:00 | Outpatient (CLI) | payer BC, SELFPAY | END 2020-11-27 08:01 | disposition home or self-care (01) | LOC: WOUND 08:01 | PROVIDERS: PCP Registered Nurse; Visit Provider Thoracic Surgery (Cardiothoracic Vascular Surgery) | DX: E11.622 Type 2 diabetes mellitus with other skin ulcer (principal); L97.812 Non-pressure chronic ulcer of other part of right lower leg with fat layer exposed; L03.115 Cellulitis of right lower limb | CPT/HCPCS: 29581 ==

== ENCOUNTER 2020-11-30 08:11 | Outpatient (CLI) | payer BC, SELFPAY | END 2020-11-30 08:12 | disposition home or self-care (01) | LOC: WOUND 08:12 | PROVIDERS: PCP Registered Nurse; Visit Provider Surgery | DX: I87.2 Venous insufficiency (chronic) (peripheral) (principal); L97.812 Non-pressure chronic ulcer of other part of right lower leg with fat layer exposed | CPT/HCPCS: 11042 ==

== ENCOUNTER 2020-12-04 15:01 | Outpatient (CLI) | payer BC, SELFPAY | END 2020-12-04 15:02 | disposition home or self-care (01) | LOC: WOUND 15:02 | PROVIDERS: PCP Registered Nurse; Visit Provider Thoracic Surgery (Cardiothoracic Vascular Surgery) | DX: E11.622 Type 2 diabetes mellitus with other skin ulcer (principal); L97.812 Non-pressure chronic ulcer of other part of right lower leg with fat layer exposed; L03.115 Cellulitis of right lower limb | CPT/HCPCS: 29581 ==

== ENCOUNTER 2020-12-07 08:15 | Outpatient (CLI) | payer BC, SELFPAY | END 2020-12-07 08:16 | disposition home or self-care (01) | LOC: WOUND 08:15 | PROVIDERS: PCP Registered Nurse; Visit Provider Nurse Practitioner Family | DX: I87.2 Venous insufficiency (chronic) (peripheral) (principal); L97.812 Non-pressure chronic ulcer of other part of right lower leg with fat layer exposed | CPT/HCPCS: 11042; 29581 ==

== ENCOUNTER 2020-12-11 08:10 | Outpatient (CLI) | payer BC, SELFPAY | END 2020-12-11 08:11 | disposition home or self-care (01) | LOC: WOUND 08:10 | PROVIDERS: PCP Registered Nurse; Visit Provider Thoracic Surgery (Cardiothoracic Vascular Surgery) | DX: E11.622 Type 2 diabetes mellitus with other skin ulcer (principal); L97.812 Non-pressure chronic ulcer of other part of right lower leg with fat layer exposed; L03.115 Cellulitis of right lower limb | CPT/HCPCS: 29581 ==

== ENCOUNTER 2020-12-14 08:07 | Outpatient (CLI) | payer BC, SELFPAY | END 2020-12-14 08:08 | disposition home or self-care (01) | LOC: WOUND 08:08 | PROVIDERS: PCP Registered Nurse; Visit Provider Nurse Practitioner Family | DX: I87.2 Venous insufficiency (chronic) (peripheral) (principal); L97.812 Non-pressure chronic ulcer of other part of right lower leg with fat layer exposed | CPT/HCPCS: 11042 ==

== ENCOUNTER 2020-12-18 11:15 | Outpatient (CLI) | payer BC, SELFPAY | END 2020-12-18 11:16 | disposition home or self-care (01) | LOC: WOUND 11:16 | PROVIDERS: PCP Registered Nurse; Visit Provider Thoracic Surgery (Cardiothoracic Vascular Surgery) | DX: I87.2 Venous insufficiency (chronic) (peripheral) (principal); L97.812 Non-pressure chronic ulcer of other part of right lower leg with fat layer exposed; L03.115 Cellulitis of right lower limb | CPT/HCPCS: 29581 ==

== ENCOUNTER 2020-12-21 08:26 | Outpatient (CLI) | payer BC, SELFPAY | END 2020-12-21 08:27 | disposition home or self-care (01) | LOC: WOUND 08:26 | PROVIDERS: PCP Registered Nurse; Visit Provider Surgery | DX: I87.2 Venous insufficiency (chronic) (peripheral) (principal); L97.812 Non-pressure chronic ulcer of other part of right lower leg with fat layer exposed | CPT/HCPCS: 11042 ==

== ENCOUNTER 2020-12-25 08:14 | Outpatient (CLI) | payer BC, SELFPAY | END 2020-12-25 08:15 | disposition home or self-care (01) | LOC: WOUND 08:15 | PROVIDERS: PCP Registered Nurse; Visit Provider Thoracic Surgery (Cardiothoracic Vascular Surgery) | DX: E11.622 Type 2 diabetes mellitus with other skin ulcer (principal); L97.812 Non-pressure chronic ulcer of other part of right lower leg with fat layer exposed; L03.115 Cellulitis of right lower limb | CPT/HCPCS: 29581 ==

== ENCOUNTER 2020-12-28 08:43 | Outpatient (CLI) | payer BC, SELFPAY | END 2020-12-28 08:44 | disposition home or self-care (01) | LOC: WOUND 08:44 | PROVIDERS: PCP Registered Nurse; Visit Provider Surgery | DX: I87.2 Venous insufficiency (chronic) (peripheral) (principal); L97.812 Non-pressure chronic ulcer of other part of right lower leg with fat layer exposed | CPT/HCPCS: 11042 ==

== ENCOUNTER 2021-01-04 08:32 | Outpatient (CLI) | payer BC, SELFPAY | END 2021-01-04 08:33 | disposition home or self-care (01) | PROVIDERS: PCP Registered Nurse; Visit Provider Surgery | DX: I87.2 Venous insufficiency (chronic) (peripheral) (principal); L97.812 Non-pressure chronic ulcer of other part of right lower leg with fat layer exposed | CPT/HCPCS: 11042 ==

== ENCOUNTER 2021-01-08 11:23 | Outpatient (CLI) | payer BC, SELFPAY | END 2021-01-08 11:24 | disposition home or self-care (01) | LOC: WOUND 11:25 | PROVIDERS: PCP Registered Nurse; Visit Provider Thoracic Surgery (Cardiothoracic Vascular Surgery) | DX: E11.622 Type 2 diabetes mellitus with other skin ulcer (principal); L97.812 Non-pressure chronic ulcer of other part of right lower leg with fat layer exposed | CPT/HCPCS: 29581 ==

== ENCOUNTER 2021-01-11 08:16 | Outpatient (CLI) | payer BC, SELFPAY | END 2021-01-11 08:17 | disposition home or self-care (01) | LOC: WOUND 08:17 | PROVIDERS: PCP Registered Nurse; Visit Provider Surgery | DX: I87.2 Venous insufficiency (chronic) (peripheral) (principal); L97.812 Non-pressure chronic ulcer of other part of right lower leg with fat layer exposed | CPT/HCPCS: 11042 ==

== ENCOUNTER 2021-01-15 08:09 | Outpatient (CLI) | payer BC, SELFPAY | END 2021-01-15 08:10 | disposition home or self-care (01) | LOC: WOUND 08:10 | PROVIDERS: PCP Registered Nurse; Visit Provider Thoracic Surgery (Cardiothoracic Vascular Surgery) | DX: I87.2 Venous insufficiency (chronic) (peripheral) (principal); L97.812 Non-pressure chronic ulcer of other part of right lower leg with fat layer exposed | CPT/HCPCS: 29581 ==

== ENCOUNTER 2021-01-18 08:00 | Outpatient (CLI) | payer BC, SELFPAY | END 2021-01-18 08:01 | disposition home or self-care (01) | LOC: WOUND 08:02 | PROVIDERS: PCP Registered Nurse; Visit Provider Surgery | DX: I87.2 Venous insufficiency (chronic) (peripheral) (principal); L97.812 Non-pressure chronic ulcer of other part of right lower leg with fat layer exposed | CPT/HCPCS: 11043 ==

== ENCOUNTER 2021-01-22 07:56 | Outpatient (CLI) | payer BC, SELFPAY | END 2021-01-22 07:57 | disposition home or self-care (01) | LOC: WOUND 07:57 | PROVIDERS: PCP Registered Nurse; Visit Provider Thoracic Surgery (Cardiothoracic Vascular Surgery) | DX: I87.2 Venous insufficiency (chronic) (peripheral) (principal); L97.812 Non-pressure chronic ulcer of other part of right lower leg with fat layer exposed | CPT/HCPCS: 29581 ==

== ENCOUNTER 2021-01-25 13:13 | Outpatient (CLI) | payer SELFPAY | END 2021-01-25 13:14 | disposition home or self-care (01) | LOC: WOUND 13:18 | PROVIDERS: PCP Registered Nurse; Visit Provider Surgery | DX: I87.2 Venous insufficiency (chronic) (peripheral) (principal); L97.812 Non-pressure chronic ulcer of other part of right lower leg with fat layer exposed | CPT/HCPCS: 11042 ==

== ENCOUNTER 2021-02-26 14:59 | Outpatient (CLI) | payer SELFPAY | END 2021-02-26 15:00 | disposition home or self-care (01) | LOC: WOUND 15:00 | PROVIDERS: PCP Registered Nurse; Visit Provider Thoracic Surgery (Cardiothoracic Vascular Surgery) | DX: I87.2 Venous insufficiency (chronic) (peripheral) (principal); L97.812 Non-pressure chronic ulcer of other part of right lower leg with fat layer exposed | CPT/HCPCS: 11042 ==

== ENCOUNTER 2021-03-01 14:09 | Outpatient (CLI) | payer SELFPAY | END 2021-03-01 14:10 | disposition home or self-care (01) | LOC: WOUND 14:10 | PROVIDERS: PCP Registered Nurse; Visit Provider Surgery | DX: I87.2 Venous insufficiency (chronic) (peripheral) (principal); L97.812 Non-pressure chronic ulcer of other part of right lower leg with fat layer exposed | CPT/HCPCS: 11042 ==

== ENCOUNTER 2021-03-05 15:17 | Outpatient (CLI) | payer SELFPAY | END 2021-03-05 15:18 | disposition home or self-care (01) | LOC: WOUND 15:18 | PROVIDERS: PCP Registered Nurse; Visit Provider Thoracic Surgery (Cardiothoracic Vascular Surgery) | DX: I87.2 Venous insufficiency (chronic) (peripheral) (principal); L97.812 Non-pressure chronic ulcer of other part of right lower leg with fat layer exposed | CPT/HCPCS: 29581 ==

== ENCOUNTER 2021-03-08 07:57 | Outpatient (CLI) | payer SELFPAY | END 2021-03-08 07:58 | disposition home or self-care (01) | LOC: WOUND 07:58 | PROVIDERS: PCP Registered Nurse; Visit Provider Nurse Practitioner Family | DX: I87.2 Venous insufficiency (chronic) (peripheral) (principal); L97.812 Non-pressure chronic ulcer of other part of right lower leg with fat layer exposed | CPT/HCPCS: 29581; 99214 ==

== ENCOUNTER 2021-03-12 14:55 | Outpatient (CLI) | payer SELFPAY | END 2021-03-12 14:56 | disposition home or self-care (01) | LOC: WOUND 14:56 | PROVIDERS: PCP Registered Nurse; Visit Provider Thoracic Surgery (Cardiothoracic Vascular Surgery) | DX: E11.622 Type 2 diabetes mellitus with other skin ulcer (principal); L97.812 Non-pressure chronic ulcer of other part of right lower leg with fat layer exposed | CPT/HCPCS: 29581 ==

== ENCOUNTER 2021-03-15 08:18 | Outpatient (CLI) | payer SELFPAY | END 2021-03-15 08:19 | disposition home or self-care (01) | LOC: WOUND 08:19 | PROVIDERS: PCP Registered Nurse; Visit Provider Surgery | DX: I87.2 Venous insufficiency (chronic) (peripheral) (principal); L97.812 Non-pressure chronic ulcer of other part of right lower leg with fat layer exposed | CPT/HCPCS: 11042 ==

== ENCOUNTER → 2021-03-17 16:20 | Outpatient (BNVA) | payer OTHER, SELFPAY | PROVIDERS: PCP Registered Nurse; Visit Provider Family Medicine Adult Medicine | DX: I73.9 Peripheral vascular disease, unspecified (principal); Z20.822 Contact with and (suspected) exposure to COVID-19; Z90.49 Acquired absence of other specified parts of digestive tract; K42.9 Umbilical hernia without obstruction or gangrene; E66.01 Morbid (severe) obesity due to excess calories; L03.119 Cellulitis of unspecified part of limb; I10 Essential (primary) hypertension; E11.9 Type 2 diabetes mellitus without complications | CPT/HCPCS: 87635 ==

== ENCOUNTER 2021-03-25 08:35 | Outpatient (CLI) | payer SELFPAY | END 2021-03-25 08:36 | disposition home or self-care (01) | LOC: WOUND 08:35 | PROVIDERS: PCP Registered Nurse; Visit Provider Nurse Practitioner Family | DX: I87.2 Venous insufficiency (chronic) (peripheral) (principal); L97.812 Non-pressure chronic ulcer of other part of right lower leg with fat layer exposed | CPT/HCPCS: 11042 ==

== ENCOUNTER 2021-03-28 11:25 | Outpatient (CLI) | payer MEDICAID, SELFPAY | END 2021-03-28 11:26 | disposition home or self-care (01) | LOC: WOUND 11:27 | PROVIDERS: PCP Registered Nurse; Visit Provider Nurse Practitioner Family | DX: E11.622 Type 2 diabetes mellitus with other skin ulcer (principal); L97.812 Non-pressure chronic ulcer of other part of right lower leg with fat layer exposed; I87.2 Venous insufficiency (chronic) (peripheral) | CPT/HCPCS: 29581 ==

== ENCOUNTER 2021-04-02 14:40 | Outpatient (CLI) | payer MEDICAID, SELFPAY | END 2021-04-02 14:41 | disposition home or self-care (01) | LOC: WOUND 14:40 | PROVIDERS: PCP Registered Nurse; Visit Provider Thoracic Surgery (Cardiothoracic Vascular Surgery) | DX: I87.2 Venous insufficiency (chronic) (peripheral) (principal); L97.812 Non-pressure chronic ulcer of other part of right lower leg with fat layer exposed | CPT/HCPCS: 11042 ==

== ENCOUNTER 2021-04-05 15:18 | Outpatient (CLI) | payer MEDICAID, SELFPAY | END 2021-04-05 15:19 | disposition home or self-care (01) | LOC: WOUND 15:18 | PROVIDERS: PCP Registered Nurse; Visit Provider Thoracic Surgery (Cardiothoracic Vascular Surgery) | DX: I87.2 Venous insufficiency (chronic) (peripheral) (principal); E11.622 Type 2 diabetes mellitus with other skin ulcer; L97.812 Non-pressure chronic ulcer of other part of right lower leg with fat layer exposed | CPT/HCPCS: 29581 ==

== ENCOUNTER 2021-04-12 11:16 | Outpatient (CLI) | payer MEDICAID, SELFPAY | END 2021-04-12 11:17 | disposition home or self-care (01) | LOC: WOUND 11:17 | PROVIDERS: PCP Registered Nurse; Visit Provider Surgery | DX: I87.2 Venous insufficiency (chronic) (peripheral) (principal); L97.812 Non-pressure chronic ulcer of other part of right lower leg with fat layer exposed; E11.622 Type 2 diabetes mellitus with other skin ulcer | CPT/HCPCS: 11042 ==

== ENCOUNTER 2021-04-16 15:19 | Outpatient (CLI) | payer MEDICAID, SELFPAY | END 2021-04-16 15:20 | disposition home or self-care (01) | LOC: WOUND 15:20 | PROVIDERS: PCP Registered Nurse; Visit Provider Thoracic Surgery (Cardiothoracic Vascular Surgery) | DX: I87.2 Venous insufficiency (chronic) (peripheral) (principal); E11.622 Type 2 diabetes mellitus with other skin ulcer; L97.812 Non-pressure chronic ulcer of other part of right lower leg with fat layer exposed | CPT/HCPCS: 29581 ==

== ENCOUNTER 2021-04-22 09:11 | Outpatient (CLI) | payer MEDICAID, SELFPAY | END 2021-04-22 09:12 | disposition home or self-care (01) | LOC: WOUND 09:12 | PROVIDERS: PCP Registered Nurse; Visit Provider Nurse Practitioner Family | DX: I87.2 Venous insufficiency (chronic) (peripheral) (principal); L97.812 Non-pressure chronic ulcer of other part of right lower leg with fat layer exposed | CPT/HCPCS: 11042 ==

== ENCOUNTER 2021-04-26 08:31 | Outpatient (CLI) | payer MEDICAID, SELFPAY | END 2021-04-26 08:32 | disposition home or self-care (01) | LOC: WOUND 08:33 | PROVIDERS: PCP Registered Nurse; Visit Provider Surgery | DX: I87.2 Venous insufficiency (chronic) (peripheral) (principal); E11.622 Type 2 diabetes mellitus with other skin ulcer; L97.812 Non-pressure chronic ulcer of other part of right lower leg with fat layer exposed | CPT/HCPCS: 29581 ==

== ENCOUNTER 2021-04-30 08:00 | Outpatient (CLI) | payer MEDICAID, SELFPAY | END 2021-04-30 08:01 | disposition home or self-care (01) | LOC: WOUND 08:00 | PROVIDERS: PCP Registered Nurse; Visit Provider Thoracic Surgery (Cardiothoracic Vascular Surgery) | DX: L97.819 Non-pressure chronic ulcer of other part of right lower leg with unspecified severity (principal) | CPT/HCPCS: 29581 ==

== ENCOUNTER 2021-05-03 08:05 | Outpatient (CLI) | payer MEDICAID, SELFPAY | END 2021-05-03 08:06 | disposition home or self-care (01) | LOC: WOUND 08:06 | PROVIDERS: PCP Registered Nurse; Visit Provider Surgery | DX: I87.2 Venous insufficiency (chronic) (peripheral) (principal); L97.812 Non-pressure chronic ulcer of other part of right lower leg with fat layer exposed; Z87.891 Personal history of nicotine dependence | CPT/HCPCS: 11042 ==

== ENCOUNTER 2021-05-06 13:06 | Outpatient (CLI) | payer MEDICAID, SELFPAY | END 2021-05-06 13:07 | disposition home or self-care (01) | LOC: WOUND 13:06 | PROVIDERS: PCP Registered Nurse; Visit Provider Nurse Practitioner Family | DX: I87.2 Venous insufficiency (chronic) (peripheral) (principal); E11.622 Type 2 diabetes mellitus with other skin ulcer; L97.812 Non-pressure chronic ulcer of other part of right lower leg with fat layer exposed | CPT/HCPCS: 29581 ==

== ENCOUNTER 2021-05-10 10:36 | Outpatient (CLI) | payer MEDICAID, SELFPAY | END 2021-05-10 10:37 | disposition home or self-care (01) | LOC: WOUND 10:36 | PROVIDERS: PCP Registered Nurse; Visit Provider Surgery | DX: I87.2 Venous insufficiency (chronic) (peripheral) (principal); L97.812 Non-pressure chronic ulcer of other part of right lower leg with fat layer exposed; Z87.891 Personal history of nicotine dependence | CPT/HCPCS: 11042 ==

== ENCOUNTER 2021-05-15 14:40 | Outpatient (CLI) | payer MEDICAID, SELFPAY | END 2021-05-15 14:41 | disposition home or self-care (01) | LOC: WOUND 14:41 | PROVIDERS: PCP Registered Nurse; Visit Provider Thoracic Surgery (Cardiothoracic Vascular Surgery) | DX: E11.622 Type 2 diabetes mellitus with other skin ulcer (principal); I87.2 Venous insufficiency (chronic) (peripheral); L97.812 Non-pressure chronic ulcer of other part of right lower leg with fat layer exposed | CPT/HCPCS: 29581 ==

== ENCOUNTER 2021-05-22 10:28 | Outpatient (CLI) | payer MEDICAID, SELFPAY | END 2021-05-22 10:29 | disposition home or self-care (01) | LOC: WOUND 10:28 | PROVIDERS: PCP Registered Nurse; Visit Provider Nurse Practitioner Family | DX: I87.2 Venous insufficiency (chronic) (peripheral) (principal); L97.812 Non-pressure chronic ulcer of other part of right lower leg with fat layer exposed; E11.622 Type 2 diabetes mellitus with other skin ulcer | CPT/HCPCS: 29581 ==

== ENCOUNTER 2021-05-31 08:35 | Outpatient (CLI) | payer MEDICAID, SELFPAY | END 2021-05-31 08:36 | disposition home or self-care (01) | LOC: WOUND 08:35 | PROVIDERS: PCP Registered Nurse; Visit Provider Emergency Medicine | DX: I87.2 Venous insufficiency (chronic) (peripheral) (principal); E11.622 Type 2 diabetes mellitus with other skin ulcer; L97.812 Non-pressure chronic ulcer of other part of right lower leg with fat layer exposed; Z87.891 Personal history of nicotine dependence | CPT/HCPCS: 11042 ==

== ENCOUNTER 2021-06-04 11:30 | Outpatient (CLI) | payer MEDICAID, SELFPAY | END 2021-06-04 11:31 | disposition home or self-care (01) | LOC: WOUND 11:31 | PROVIDERS: PCP Registered Nurse; Visit Provider Emergency Medicine | DX: I87.2 Venous insufficiency (chronic) (peripheral) (principal); E11.622 Type 2 diabetes mellitus with other skin ulcer; L97.812 Non-pressure chronic ulcer of other part of right lower leg with fat layer exposed | CPT/HCPCS: 29581 ==

== ENCOUNTER 2021-06-07 09:02 | Outpatient (CLI) | payer MEDICAID, SELFPAY | END 2021-06-07 09:03 | disposition home or self-care (01) | LOC: WOUND 09:03 | PROVIDERS: PCP Registered Nurse; Visit Provider Surgery | DX: Z09 Encounter for follow-up examination after completed treatment for conditions other than malignant neoplasm (principal); Z87.891 Personal history of nicotine dependence | CPT/HCPCS: 99212 ==